=== PATIENT | female | born 1940 | race Caucasian/White ===

== ENCOUNTER → 2016-10-19 | Outpatient (CLI) | payer MEDICARE ==
[~2016-10-19] MED LIST: ARMOUR THYROID30 MG PO; ATARAX25 MG PO; CELEBREX200 MG PO; Cimetidine300 MG PO; DANTHRON75 MG PO; HYDROCODONE BIT1 T11 PO; INVEGA SUSTENNA IM; LIDEX0.05% T; LISINOPRIL20 MG PO; NORVASC5 MG PO; NYSTATIN CREAM15 GM T; PLAQUENIL200 MG PO; RANITIDINE150 MG PO; TOPROL XL50 MG PO; TRAMADOL HYDROC50 MG PO; [UNRECOGNIZED DRUG - OTHER] PO
== END | disposition home or self-care (01) ==
LOC: ORTHO 03:23
DX: M17.11 Unilateral primary osteoarthritis, right knee (principal)

== ENCOUNTER 2016-12-04 20:54 | Emergency (ER) | payer MEDICARE ==
[~2016-12-04] VITALS: Ht 162.5 cm; Wt 90.7 kg
[2016-12-04 21:06] VITALS: BP 151/60
[2016-12-04] MEDS ORDERED: VOLTAREN GEL1% T (22:22)
[2016-12-04] MEDS ORDERED: HYDROCODONE BIT1 T11 PO (22:22)
== END 2016-12-04 22:22 | disposition home or self-care (01) ==
LOC: ED 20:54
DX: M13.861 Other specified arthritis, right knee (principal); Z88.8 Allergy status to other drugs, medicaments and biological substances; Z79.899 Other long term (current) drug therapy

== ENCOUNTER → 2016-12-17 | Outpatient (CLI) | payer MEDICARE ==
[~2016-12-17] MED LIST changes: +VOLTAREN GEL1% T
[2016-12-17 18:10] LABS: FREE T4 0.7 ng/dl (0.76-1.46)
[2016-12-17 18:41] LABS: THYROID STIM HORMONE (HS) 1.69 uIU/ml (0.358-4.75)
== END ==
LOC: LAB 17:23
PROVIDERS: Internal Medicine
DX: E03.9 Hypothyroidism, unspecified (principal)

== ENCOUNTER → 2017-10-04 | Outpatient (CLI) | payer MEDICARE ==
[2017-10-04 14:18] LABS: HEMATOCRIT 39.3 % (37.0-47.0); HEMOGLOBIN 12.9 g/dl (12.0-16.0); MEAN CELL VOLUME 89.7 fl (81.0-99.0); MEAN CORPUSCULAR HGB 29.5 pg (27.0-31.0); MEAN CORPUSCULAR HGB CONC 32.8 g/dl (33.0-37.0); MEAN PLATELET VOLUME 10.8 fl (9.6-12.3); RED BLOOD COUNT 4.38 10*6/uL (4.10-5.10); RED CELL DISTRI WIDTH 12.3 % (0-14.5); WHITE BLOOD COUNT 7.4 10*3/uL (4.8-10.8)
[2017-10-04 14:23] LABS: ALBUMIN 3.8 gm/dl (3.1-4.5); BUN 21 mg/dl (7-24); CHLORIDE 106 mmol/L (98-107); POTASSIUM 3.9 mmol/L (3.5-5.1); SGPT/ALT 20 U/L (12-78); SODIUM 141 mmol/L (136-145)
[2017-10-04 14:26] LABS: ALKALINE PHOSPHATASE 83 U/L (45-117); CHOLESTEROL 184 mg/dL (<200); CREATININE 0.92 mg/dL (0.55-1.02); HDL CHOLESTEROL 29 mg/dl (40-60); LDL CHOLESTEROL 88 mg/dL (9-159); SGOT/AST 20 IU/L (3-35); TRIGLYCERIDES 333 mg/dl (<150); VLDL CHOLESTEROL 67 mg/dL (6-40)
== END | disposition home or self-care (01) ==
LOC: LAB 13:25
PROVIDERS: Internal Medicine
DX: I10 Essential (primary) hypertension (principal); E78.00 Pure hypercholesterolemia, unspecified; E55.9 Vitamin D deficiency, unspecified; R30.0 Dysuria

== ENCOUNTER → 2018-03-24 | Outpatient (CLI) | payer MEDICARE ==
[2018-03-24 18:30] LABS: HEMATOCRIT 40.1 % (37.0-47.0); HEMOGLOBIN 12.8 g/dl (12.0-16.0); MEAN CELL VOLUME 90.7 fl (81.0-99.0); MEAN CORPUSCULAR HGB CONC 31.9 g/dl (33.0-37.0); MEAN PLATELET VOLUME 11.5 fl (9.6-12.3); RED BLOOD COUNT 4.42 10*6/uL (4.10-5.10); RED CELL DISTRI WIDTH 13.5 % (0-14.5); WHITE BLOOD COUNT 6.9 10*3/uL (4.8-10.8)
[2018-03-24 18:46] LABS: ALBUMIN 3.8 gm/dl (3.1-4.5); ALKALINE PHOSPHATASE 86 U/L (45-117); BUN 21 mg/dl (7-24); CHLORIDE 108 mmol/L (98-107); CREATININE 0.87 mg/dL (0.55-1.02); POTASSIUM 3.6 mmol/L (3.5-5.1); SGOT/AST 19 IU/L (3-35); SGPT/ALT 21 U/L (12-78); SODIUM 142 mmol/L (136-145); TOTAL PROTEIN 7.2 gm/dL (6.4-8.2)
== END | disposition home or self-care (01) ==
LOC: LAB 16:28
PROVIDERS: Internal Medicine
DX: Z01.818 Encounter for other preprocedural examination (principal); R06.02 Shortness of breath

== ENCOUNTER → 2020-01-12 | Outpatient (CLI) | payer MEDICARE ==
[~2020-01-12] MED LIST changes: +KEFLEX500 M1 PO; +SEPTDS PO
[2020-01-12 12:54] LABS: BASO # 0.1 10*3/uL (0.0-0.1); BASO % 0.9 % (0.0-1.0); EOS # 0.1 10*3/uL (0.0-0.4); EOS % 1.9 % (1.0-4.0); HEMATOCRIT 42.5 % (37.0-47.0); LYMPH # 1.8 10*3/uL (1.3-4.4); LYMPH % 24.8 % (27.0-41.0); MEAN CELL VOLUME 89.3 fl (81.0-99.0); MEAN CORPUSCULAR HGB 28.4 pg (27.0-31.0); MEAN CORPUSCULAR HGB CONC 31.8 g/dl (33.0-37.0); MEAN PLATELET VOLUME 10.8 fl (9.6-12.3); MONO # 0.5 10*3/uL (0.1-1.0); MONO % 6.4 % (3.0-9.0); NEUT # 4.8 10*3/uL (2.3-7.9); NEUT % 65.6 % (47.0-73.0); PLATELET COUNT AUTOMATED 243 10*3/uL (130-400); RED BLOOD COUNT 4.76 10*6/uL (4.10-5.10); RED CELL DISTRI WIDTH 13.1 % (0-14.5); WHITE BLOOD COUNT 7.4 10*3/uL (4.8-10.8)
[2020-01-12 13:19] LABS: ALBUMIN 3.9 gm/dl (3.1-4.5); ALKALINE PHOSPHATASE 92 U/L (45-117); BUN 23 mg/dl (7-24); CHLORIDE 104 mmol/L (98-107); CHOLESTEROL 258 mg/dL (<200); CREATININE 0.99 mg/dL (0.55-1.02); HDL CHOLESTEROL 34 mg/dl (40-60); LDL CHOLESTEROL 160 mg/dL (9-159); SGOT/AST 19 IU/L (3-35); SGPT/ALT 19 U/L (12-78); SODIUM 137 mmol/L (136-145); TOTAL PROTEIN 7.8 gm/dL (6.4-8.2); TRIGLYCERIDES 318 mg/dl (<150); VLDL CHOLESTEROL 64 mg/dL (6-40)
[2020-01-12 13:39] LABS: FREE T4 0.88 ng/dl (0.76-1.46)
== END | disposition home or self-care (01) ==
LOC: LAB 11:17
PROVIDERS: Nurse Practitioner Primary Care
DX: M25.78 Osteophyte, vertebrae (principal); R06.02 Shortness of breath; G89.29 Other chronic pain; I10 Essential (primary) hypertension; E55.9 Vitamin D deficiency, unspecified

== ENCOUNTER 2021-03-02 04:16 | Inpatient (IN) | payer MEDICARE ==
[~2021-03-02] VITALS: Ht 162.5 cm; Wt 100.0 kg
[2021-03-02 04:21] VITALS: BP 124/66
[2021-03-02 04:54] LABS: BASO # 0.1 10*3/uL (0.0-0.1); BASO % 0.7 % (0.0-1.0); EOS % 0.3 % (1.0-4.0); HEMATOCRIT 38.6 % (37.0-47.0); LYMPH # 1.4 10*3/uL (1.3-4.4); LYMPH % 11.3 % (27.0-41.0); MEAN CELL VOLUME 95.1 fl (81.0-99.0); MEAN CORPUSCULAR HGB CONC 31.6 g/dl (33.0-37.0); MEAN PLATELET VOLUME 9.9 fl (9.6-12.3); MONO # 0.8 10*3/uL (0.1-1.0); MONO % 6.7 % (3.0-9.0); NEUT # 10.2 10*3/uL (2.3-7.9); NEUT % 80.5 % (47.0-73.0); PLATELET COUNT AUTOMATED 231 10*3/uL (130-400); RED BLOOD COUNT 4.06 10*6/uL (4.10-5.10); RED CELL DISTRI WIDTH 13.2 % (0-14.5); WHITE BLOOD COUNT 12.6 10*3/uL (4.8-10.8)
[2021-03-02 05:10] LABS: ALBUMIN 3.6 gm/dl (3.1-4.5); CREATININE 1.56 mg/dL (0.55-1.02); POTASSIUM 3.4 mmol/L (3.5-5.1); TOTAL PROTEIN 7.3 gm/dL (6.4-8.2)
[2021-03-02 07:35] LABS: BILIRUBIN Negative (Negative); BLOOD Trace-Intact (Negative); CLARITY Turbid (Clear); COLOR Yellow (Yellow); GLUCOSE Negative (Negative); KETONE Trace (Negative); LEUKO ESTERASE 3+ (Negative); NITRITE Positive (Negative)
[2021-03-02 07:47] LABS: CPK 196 U/L (26-192)
[2021-03-02 07:53] LABS: TROPONIN I < 0.015 ng/ml (<0.045)
[2021-03-02 07:54] LABS: BACTERIA 4+; EPITHELIAL CELLS 31-40; WBC TNTC wbc/hpf (0-5)
[2021-03-02 08:36] VITALS: BP 136/75
[2021-03-02 13:32] VITALS: BP 143/59
[2021-03-02 17:32] VITALS: BP 153/56
[2021-03-02 19:53] VITALS: BP 157/46
[2021-03-03] VITALS: BP 147/43
[2021-03-03 06:25] LABS: BASO # 0.1 10*3/uL (0.0-0.1); BASO % 0.7 % (0.0-1.0); EOS # 0.4 10*3/uL (0.0-0.4); EOS % 4.4 % (1.0-4.0); HEMATOCRIT 36.9 % (37.0-47.0); LYMPH # 3.1 10*3/uL (1.3-4.4); LYMPH % 32.8 % (27.0-41.0); MEAN CORPUSCULAR HGB 30.9 pg (27.0-31.0); MEAN CORPUSCULAR HGB CONC 30.9 g/dl (33.0-37.0); MEAN PLATELET VOLUME 10.7 fl (9.6-12.3); MONO # 1.1 10*3/uL (0.1-1.0); MONO % 11.5 % (3.0-9.0); NEUT # 4.8 10*3/uL (2.3-7.9); NEUT % 50.3 % (47.0-73.0); PLATELET COUNT AUTOMATED 184 10*3/uL (130-400); RED BLOOD COUNT 3.69 10*6/uL (4.10-5.10); RED CELL DISTRI WIDTH 13.6 % (0-14.5); WHITE BLOOD COUNT 9.6 10*3/uL (4.8-10.8)
[2021-03-03 06:44] LABS: ALKALINE PHOSPHATASE 68 U/L (45-117); BUN 35 mg/dl (7-24); CHLORIDE 110 mmol/L (98-107); CHOLESTEROL 224 mg/dL (<200); CREATININE 0.91 mg/dL (0.55-1.02); LDL CHOLESTEROL 132 mg/dL (9-159); SGOT/AST 28 IU/L (3-35); SGPT/ALT 23 U/L (12-78); SODIUM 140 mmol/L (136-145); TOTAL PROTEIN 6.3 gm/dL (6.4-8.2); TRIGLYCERIDES 307 mg/dl (<150)
[2021-03-03 07:35] LABS: VITAMIN D, 25-HYDROXY 33.6 ng/mL (30-100)
[2021-03-03 08:00] VITALS: BP 106/60
[2021-03-03 12:00] VITALS: BP 110/60
[2021-03-03 14:50] VITALS: BP 148/85
[2021-03-03 16:00] VITALS: BP 108/64
[2021-03-03 20:00] VITALS: BP 169/63
[2021-03-04] VITALS: BP 160/50
[2021-03-04 06:40] LABS: BASO # 0.1 10*3/uL (0.0-0.1); EOS # 0.5 10*3/uL (0.0-0.4); EOS % 6.2 % (1.0-4.0); HEMATOCRIT 33.2 % (37.0-47.0); LYMPH # 2.5 10*3/uL (1.3-4.4); LYMPH % 29.5 % (27.0-41.0); MEAN CELL VOLUME 97.4 fl (81.0-99.0); MEAN CORPUSCULAR HGB 30.2 pg (27.0-31.0); MEAN PLATELET VOLUME 10.2 fl (9.6-12.3); MONO # 0.7 10*3/uL (0.1-1.0); MONO % 8.9 % (3.0-9.0); NEUT # 4.5 10*3/uL (2.3-7.9); NEUT % 54.2 % (47.0-73.0); PLATELET COUNT AUTOMATED 196 10*3/uL (130-400); RED BLOOD COUNT 3.41 10*6/uL (4.10-5.10); RED CELL DISTRI WIDTH 13.3 % (0-14.5); WHITE BLOOD COUNT 8.4 10*3/uL (4.8-10.8)
[2021-03-04 06:50] LABS: CHLORIDE 112 mmol/L (98-107); CREATININE 0.72 mg/dL (0.55-1.02); POTASSIUM 3.7 mmol/L (3.5-5.1); SODIUM 141 mmol/L (136-145)
[2021-03-04 06:51] LABS: BUN 21 mg/dl (7-24)
[2021-03-04 08:00] VITALS: BP 139/68
[2021-03-04 12:00] VITALS: BP 126/84
[2021-03-04 16:00] VITALS: BP 134/73
[2021-03-04 20:00] VITALS: BP 152/57
[2021-03-05] VITALS: BP 150/48
[2021-03-05 06:47] LABS: BASO # 0.1 10*3/uL (0.0-0.1); BASO % 1.1 % (0.0-1.0); EOS # 0.5 10*3/uL (0.0-0.4); EOS % 6.4 % (1.0-4.0); LYMPH # 2.3 10*3/uL (1.3-4.4); LYMPH % 28.6 % (27.0-41.0); MEAN CELL VOLUME 95.8 fl (81.0-99.0); MEAN CORPUSCULAR HGB 30.7 pg (27.0-31.0); MEAN CORPUSCULAR HGB CONC 32.1 g/dl (33.0-37.0); MEAN PLATELET VOLUME 10.2 fl (9.6-12.3); MONO # 0.7 10*3/uL (0.1-1.0); MONO % 8.8 % (3.0-9.0); NEUT # 4.4 10*3/uL (2.3-7.9); NEUT % 54.7 % (47.0-73.0); PLATELET COUNT AUTOMATED 209 10*3/uL (130-400); RED BLOOD COUNT 3.55 10*6/uL (4.10-5.10); RED CELL DISTRI WIDTH 13.2 % (0-14.5)
[2021-03-05 07:12] LABS: BUN 15 mg/dl (7-24); CHLORIDE 111 mmol/L (98-107); CREATININE 0.69 mg/dL (0.55-1.02); POTASSIUM 3.9 mmol/L (3.5-5.1); SODIUM 141 mmol/L (136-145)
[2021-03-05 08:00] VITALS: BP 142/74
[2021-03-05 12:00] VITALS: BP 155/65
[2021-03-05 16:00] VITALS: BP 146/64
[2021-03-05 20:00] VITALS: BP 164/59
[2021-03-06] VITALS: BP 144/69
[2021-03-06 06:31] LABS: BASO # 0.1 10*3/uL (0.0-0.1); EOS # 0.4 10*3/uL (0.0-0.4); EOS % 5.4 % (1.0-4.0); HEMATOCRIT 34.7 % (37.0-47.0); LYMPH # 2.3 10*3/uL (1.3-4.4); LYMPH % 30.8 % (27.0-41.0); MEAN CELL VOLUME 94.3 fl (81.0-99.0); MEAN CORPUSCULAR HGB 30.4 pg (27.0-31.0); MEAN CORPUSCULAR HGB CONC 32.3 g/dl (33.0-37.0); MEAN PLATELET VOLUME 10.1 fl (9.6-12.3); MONO # 0.8 10*3/uL (0.1-1.0); MONO % 10.2 % (3.0-9.0); NEUT # 3.8 10*3/uL (2.3-7.9); NEUT % 52.2 % (47.0-73.0); PLATELET COUNT AUTOMATED 224 10*3/uL (130-400); RED BLOOD COUNT 3.68 10*6/uL (4.10-5.10); RED CELL DISTRI WIDTH 13.2 % (0-14.5); WHITE BLOOD COUNT 7.3 10*3/uL (4.8-10.8)
[2021-03-06 06:36] LABS: BUN 13 mg/dl (7-24); CHLORIDE 109 mmol/L (98-107); CREATININE 0.72 mg/dL (0.55-1.02); POTASSIUM 3.9 mmol/L (3.5-5.1); SODIUM 141 mmol/L (136-145)
[2021-03-06 08:00] VITALS: BP 183/79
[2021-03-06] MEDS ORDERED: SYNTHROID,LEVO75 MCG PO (08:17)
[2021-03-06] MEDS ORDERED: LOSARTAN-HCTZ1 EAC2 PO (08:18)
[2021-03-06 12:00] VITALS: BP 154/49
[2021-03-06] MEDS ORDERED: OMNICEF300 MG PO (14:12)
[2021-03-06] MEDS ORDERED: TRAMADOL HCL50 MG PO (14:20)
== END 2021-03-06 17:58 | DRG 871 ==
LOC: ED 04:16 → EDHOLD 08:11 → 4E 08:11 → EDHOLD 09:41 → 4E 03-03 16:36
PROVIDERS: Emergency Medicine; Hospitalist; Internal Medicine; Student in an Organized Health Care Education/Training Program; ADMIT Internal Medicine; ATTEND Internal Medicine
DX: A41.9 Sepsis, unspecified organism (principal); N17.0 Acute kidney failure with tubular necrosis; N30.00 Acute cystitis without hematuria; E86.0 Dehydration; Z20.822 Contact with and (suspected) exposure to COVID-19; W18.09XA Striking against other object with subsequent fall, initial encounter; R31.9 Hematuria, unspecified; E03.9 Hypothyroidism, unspecified; I10 Essential (primary) hypertension; S71.109A Unspecified open wound, unspecified thigh, initial encounter; B96.20 Unspecified Escherichia coli [E. coli] as the cause of diseases classified elsewhere; E87.8 Other disorders of electrolyte and fluid balance, not elsewhere classified; E78.5 Hyperlipidemia, unspecified; W19.XXXA Unspecified fall, initial encounter; Y93.89 Activity, other specified; Y92.89 Other specified places as the place of occurrence of the external cause; Z68.37 Body mass index [BMI] 37.0-37.9, adult; Y99.8 Other external cause status; Z91.041 Radiographic dye allergy status; Z88.8 Allergy status to other drugs, medicaments and biological substances; Z82.49 Family history of ischemic heart disease and other diseases of the circulatory system; Z79.1 Long term (current) use of non-steroidal anti-inflammatories (NSAID); Z79.899 Other long term (current) drug therapy; Z90.49 Acquired absence of other specified parts of digestive tract; Z98.51 Tubal ligation status; Z87.891 Personal history of nicotine dependence